=== PATIENT | female | born 1965 | race African-American/Black ===

== ENCOUNTER → 2024-12-23 | Day surgery (SDC) | payer MEDICAID ==
[~2024-12-23] MED LIST: ALBU18HF2 IH; ATEN-42 PO; ATOR20TA65 PO; EMPA10TA PO; LIDOCAINE HCL 1% 10 MG/ML 10ML VIAL ONE; LISI20TA31 PO; METF-414 PO; NIFE-33 PO; SEMA0.258 INJ; SODIUM BICARBONATE 4.2% 2.5MEQ/5ML VIAL IV ONE
== END | disposition home or self-care (01) ==
LOC: RAD 08:35
PROVIDERS: ATTEND Surgery Surgical Oncology
DX: D24.1 Benign neoplasm of right breast (principal); N63.10 Unspecified lump in the right breast, unspecified quadrant; Z79.84 Long term (current) use of oral hypoglycemic drugs; Z79.899 Other long term (current) drug therapy; Z88.8 Allergy status to other drugs, medicaments and biological substances; Z98.890 Other specified postprocedural states
CPT/HCPCS: 19281; J2003; J3490; 82962; 88305; A4648

== ENCOUNTER → 2024-12-25 | Day surgery (SDC) | payer MEDICAID ==
[~2024-12-25] VITALS: Ht 172.7 cm; Wt 122.5 kg
[~2024-12-25] MED LIST changes: +ACETAMINOPHEN 1000MG/100ML 100 ML IV ONE; +ALBUTEROL 6.7GM HFA INHALER ONE; +BUPIVACAINE HCL/PF 0.5% (5MG/ML) 10ML ONE; +CEFAZOLIN SODIUM 1000MG/VIAL ONE; +DEXAMETHASONE 4MG/ML 1ML VIAL ONE; +DIPHENHYDRAMINE 50MG/ML VIAL ONE; +EPHEDRINE SULFATE 50MG/ML VIAL ONE; +EPINEPHRINE 1:1000 1 MG/ML AMP ONE; +FAMOTIDINE 20MG/2ML VIAL IV ONE; +FENTANYL CITRATE/PF 50MCG/ML 2ML VIAL IV PRN; +FENTANYL CITRATE/PF 50MCG/ML 2ML VIAL ONE; +HYDROMORPHONE HCL/PF 1MG/ML INJ IV PRN; +LACTATED RINGERS 1,000 ML IV SCH; -LIDOCAINE HCL 1% 10 MG/ML 10ML VIAL ONE; +LIDOCAINE HCL/EPINEPHRINE 1%-EPI 1:100,000 20ML VIAL ONE; +MIDAZOLAM HCL 2 MG/2 ML VIAL ONE; +ONDANSETRON HCL 4MG/2ML INJ IV PRN; +ONDANSETRON HCL 4MG/2ML INJ ONE; +PROPOFOL 200MG/20ML VIAL IV ONE; +ROCURONIUM BROMIDE 10MG/ML VIAL 5ML IV ONE; -SODIUM BICARBONATE 4.2% 2.5MEQ/5ML VIAL IV ONE; +SUCCINYLCHOLINE CHLORIDE 200MG/10ML IV ONE
== END | disposition home or self-care (01) ==
LOC: OR 06:39
PROVIDERS: ATTEND Surgery Surgical Oncology
DX: D24.1 Benign neoplasm of right breast (principal); N64.89 Other specified disorders of breast; I12.9 Hypertensive chronic kidney disease with stage 1 through stage 4 chronic kidney disease, or unspecified chronic kidney disease; E11.22 Type 2 diabetes mellitus with diabetic chronic kidney disease; N18.9 Chronic kidney disease, unspecified; E78.5 Hyperlipidemia, unspecified; K21.9 Gastro-esophageal reflux disease without esophagitis; J45.909 Unspecified asthma, uncomplicated; Z79.84 Long term (current) use of oral hypoglycemic drugs; Z79.82 Long term (current) use of aspirin; Z79.899 Other long term (current) drug therapy; Z98.890 Other specified postprocedural states
CPT/HCPCS: 19125; 00400; 82962; 76098; J3010; J0665; J0690; J1100; J1200; J3490 ×3; J1308; J2004; J2250; J2405; J2704; J0330; J0131